=== PATIENT | female | born 1990 | race Caucasian/White ===

== ENCOUNTER 2016-08-27 06:16 | Day surgery (SDC) | END 2016-08-27 12:55 | disposition home or self-care (01) | DX: K80.10 Calculus of gallbladder with chronic cholecystitis without obstruction (principal); E66.9 Obesity, unspecified; Z68.37 Body mass index [BMI] 37.0-37.9, adult | CPT/HCPCS: 47562; 84703; 88304; J0330; J0690; J0780; J1100; J1170; J1885; J2175; J2250; J2370; J2405; J2710; J3010; Z7512; Z7610 ==